=== PATIENT | male | born 1975 | race Caucasian/White ===

== ENCOUNTER 2022-08-11 07:43 | Emergency (ER) | payer OTHER ==
[2022-08-11] MEDS ORDERED: HYDROcodone/Acetaminophen 5/325 mg Tablet ONE (09:08)
[2022-08-11 09:21] LABS: Bilirubin Negative (Negative); Blood, Urine Negative (Negative); Clarity Clear (Clear); Glucose, Urine (Dipstick) Negative (Negative); Ketone, Urine Trace mg/dL (Negative); Leukocyte Negative (Negative); Nitrite Negative (Negative); Protein, Urine (Dipstick) Negative (Neg-Trace); Urobilinogen 0.2 mg/dL (Less than 2); pH, Urine 5.5 (5.0-9.0)
[2022-08-11 09:36] LABS: Specific Gravity, Urine 1.029 (1.002-1.036)
== END 2022-08-11 11:39 | disposition home or self-care (01) ==
LOC: MADERS 07:43
DX: S33.5XXA Sprain of ligaments of lumbar spine, initial encounter (principal); W19.XXXA Unspecified fall, initial encounter
CPT/HCPCS: 71045; 74176; 81003